=== PATIENT | male | born 1950 | race Caucasian/White ===

== ENCOUNTER 2025-01-27 21:47 | Inpatient (IN) | payer MEDICARE, OTHER, SELFPAY ==
[2025-01-27 14:35] VITALS: BP 158/82
--- NOTE | 2025-01-27 16:06 | EDRN ---
Pt arrives for bilateral arm swelling and has had US. Pt was sent by his oncologist who just called that pt has a high calcium.
[2025-01-27 16:07] VITALS: BMI 28.4
[2025-01-27 16:24] VITALS: BP 146/77
--- NOTE | 2025-01-27 17:26 | ED.GENMED ---
History of Present Illness
General
Chief Complaint: Swelling
Source: patient and family
Exam Limitations: none
Time Seen by Provider: 01/27/25 17:17
Nursing documentation reviewed up to this point in time: agreed with
History of Present Illness
History of Present Illness:
Patient is a 74-year-old male with history of CKD, insulin-dependent diabetes, mesothelioma who presents to the emergency department from recommendation of oncologist given hypercalcemia as well as bilateral arm swelling. States that forearms have
been gradually swelling over the past 2 weeks however seem to worsen over the past few days. He denies any significant pain however does feel like he appreciates some warmth of both arms. He denies any recent injury. He denies any leakage of
fluid or pain with range of motion of wrist. He has had no fevers or chills. No known bug bites or rashes.
Patient's oncologist was concerned for possible DVT however he was unable to have an ultrasound scheduled outpatient therefore was referred to the emergency department.
In addition�patient's oncologist recommended he come to the emergency department due to gradually worsening hypercalcemia seen on outpatient labs. Apparently, this is been a gradual problem for patient however it appears to be continued to worsen
despite fluids and medication he receives Prolia injections for hypercalcemia, his most recent was this past Sunday. He frequently receives IV fluids, as well along with his infusions for mesothelioma. He denies any changes in mental status,
abdominal pain, bone pain.
Past History
Past History
ED Past Medical History: HTN and NIDDM
ED Past Surgical History: Orthopedic (Left shoulder surgery)
Social History
Tobacco: Smoker (Cigar)
Alcohol: None
Personal: Single
Living: with family
Review of Systems
Review of Systems
Allergies reviewed?: Yes
All Other Systems: ROS reviewed and negative except as documented in HPI and ROS
Phy Exam
Physical Exam
Physical Exam:
Vitals: Tachycardic, hypertensive on arrival. Afebrile
General: Patient is well appearing, no acute distress. Nontoxic appearing
Skin: Warm and dry, no rashes or lesions
Head: Normocephalic, atraumatic
Eyes: Sclera nonicteric.
Throat: Protecting airway
Neck: Normal ROM, no cervical spine tenderness, no meningismus
Cardiac: Tachycardic, normal rhythm, no murmurs.
Pulm: Normal respiratory effort, no wheezes, rales, rhonchi heard on exam
Abdomen: Abdomen soft and nontender.
Extremities: 1+ pitting edema of bilateral forearms. Very mild appreciated warmth however no erythema or evidence of cellulitis. Patient is 2+ palpable radial pulses bilaterally. Normal range of motion in bilateral wrists without pain and no
effusion. Capillary refill normal.
Neuro: AAOx3. Grossly intact.
Psychiatric: Normal affect.
Scores
Heart Failure Risk
Heart Failure Risk Score: Not Applicable
Course
Orders/Labs/Results
Orders:
Orders
01/27/25 Breakfast
2000 calorie (17 carb) Diabetic
At Your Request: Limited Participation
Does patient need a safe tray?: No
01/27/25 14:39
Periph Venous Upr Ext Bilat US [US Periph Venous UPPER Ext Dante] Urgent
Comment:
Reason For Exam: swelling
01/27/25 17:19
Complete Blood Count/With Diff Urgent
01/27/25 17:27
0.9% Sodium Chloride 500 ml [Nss] 1,000 ml IV BOLUS
01/27/25 17:36
Comprehensive Metabolic Panel Urgent
Creatine Phosphokinase Urgent
Comment: ADD ON
Magnesium Urgent
Comment: ADD ON
01/27/25 18:33
Add On- LAB Urgent
Comments:: tube in lab
Tests Added?: magnesium
01/27/25 18:46
Add On- LAB Urgent
Tests Added?: magnesium
01/27/25 19:33
Electrocardiogram (*1) Urgent
Reason for Study: QTc Monitoring
EKG- Treatment ONCE
01/27/25 20:30
Add On- LAB Urgent
Tests Added?: ionized calcium, PTH
01/27/25 20:34
Add On- LAB Urgent
Tests Added?: CK
01/27/25 21:19
Admit/Transfer Patient As Directed
Co-Sign Provider:
Level of Care: Inpatient admission
Assign to:: Telemetry
Physician / Group: adair
Diagnosis: hypercalcemia
Reason for Telemetry: Other
Other Reason for Telemetry: electrolyte imbalance
Date to Stop Telemetry: 01/29/25
Time to Stop Telemetry: 11:00
Reason for Hospitalization: hypercalcemia
Expected length of stay greater than two midnights?: Yes
ELOS- Estimated Length of Stay in days: 3
I certify the patient meets the requirements for IP care: Yes
PRN Pain Medication Management As Directed
May give lesser potent ordered pain med per pt: Yes
preference::
Protocol:: Medication orders for pain may be administered in a
manner that supports deferring to patient preference
when the pt is:
- Requesting an ordered lesser potent pain medication.
Least to most potent pain medications are defined
as: acetaminophen < NSAID < tramadol < opioids
(morphine, oxycodone, hydromorphone).
- Requesting a lesser dose of the same medication IF
ORDERED.
- Requesting a less intrusive route of administration
if both routes are prescribed by the provider (PO <
IV).
01/27/25 21:21
Code Status As Directed
Resuscitation Status: Full Code
01/27/25 21:26
Add On- LAB Stat
Tests Added?: PTH related RP
01/27/25 21:28
Vitamin D, 25-OH Routine
01/27/25 21:45
Add On- LAB Routine
Tests Added?: 1,25 Dihydroxyvitamin D
KRISTY w/Free Light Chains, Urine [S] Routine
01/27/25 22:00
Flush (0.9% Sodium Chloride) [Flush (Nss)] See Dose Instructions IV PER PROTOCOL
Pamidronate Disodium [Aredia] 90 mg 0.9% Sodium Chloride 250 ml [Nss] 250 ml IV ONCE
01/27/25 22:36
0.9% Sodium Chloride 1000 ml [Nss] 1,000 ml IV 80 mls/hr
Acetaminophen [Tylenol] 650 mg PO Q4HPRN PRN
Bisacodyl [Dulcolax] 10 mg RECTAL [id number] PRN
Dextrose 50%-Water [Dextrose 50% Syringe] 12.5 grams IV T60GATA PRN
Docusate W/Senna [Senokot-S] 1 tablet PO BIDPRN PRN
Glucagon [GlucaGen] 1 mg IM PRN PRN
Polyethylene Glycol Powder [Miralax] 17 grams PO DAILYPRN PRN
01/27/25 22:36
NEPHROLOGY CONSULT Routine
Consulting Provider: Johnathon Montes
Was physician already notified: Yes
Activity As Directed
Activity Level: As Tolerated
Bedside Glucose Monitoring As Directed
Frequency: AC&HS
Additional Instructions:: Change to q6h if pt on TPN, tube feeding or not eating
Vital Signs As Directed
Frequency: Per unit guidelines
DX Deep Vein Thrombosis Video Routine
01/28/25 06:00
[id number] Enzyme [S] IN AM
Basic Metabolic Panel IN AM
Complete Blood Count/No Diff IN AM
Glycohemoglobin (HgbA1c) IN AM
Magnesium IN AM
PTH Related Peptide LC-MS/MS [S] IN AM
Phosphorus IN AM
Protein Electrophoresis Reflex [S] IN AM
Levothyroxine [Synthroid] 125 mcg PO DAILY@0600
01/28/25 07:30
Insulin Aspart Corrective Low [Novolog Flexpen-Low Resistance] See Protocol SC AC
Insulin Aspart Pen [Novolog Flexpen] 10 units SC AC
01/28/25 08:00
Glimepiride [Amaryl] 2 mg PO DAILY
Heparin 5,000 units SC Q12
Irbesartan [Avapro] 150 mg PO DAILY
Rosuvastatin Calcium [Crestor] 20 mg PO DAILY
Tamsulosin [Flomax] 0.4 mg PO DAILY
01/29/25 06:00
Basic Metabolic Panel IN AM
Complete Blood Count/No Diff IN AM
01/29/25 11:00
DC Protocol for Telemetry ONCE
01/30/25 06:00
Basic Metabolic Panel IN AM
Complete Blood Count/No Diff IN AM
Abnormal Lab Results
01/27/25 01/27/25
17:19 17:36
WBC 3.9 L 10^3/uL
(4.8-10.8)
RBC 3.14 L 10^6/uL
(4.70-6.10)
Hgb 8.6 L g/dL
(13.0-18.0)
Hct 26.6 L %
(39.0-52.0)
MCHC 32.3 L g/dL
(33.0-37.0)
RDW 15.4 H %
(11.5-14.5)
Absolute Lymphs (auto) 0.8 L 10^3/uL
(1.2-3.4)
Monocytes % 12.4 H %
(1.7-9.3)
BUN 28 H mg/dl
(9-20)
Creatinine 3.2 H mg/dL
(0.7-1.3)
Calcium 12.5 H mg/dl
(8.4-10.2)
Magnesium 1.5 L mg/dl
(1.6-2.3)
AST 16 L U/L
(17-59)
Creatine Kinase 46 L U/L
(55-170)
PTH Intact < 3.4 L pg/ml
(13.6-85.8)
01/27/25 17:19
01/27/25 17:36
Vital Signs
Initial and Last Documented VS:
Initial Vital Signs
Temp Pulse Resp BP Pulse Ox
98.6 F 106 20 158/82 96
01/27/25 14:35 01/27/25 14:35 01/27/25 14:35 01/27/25 14:35 01/27/25 14:35
Last Documented Vital Signs
Temp Pulse Resp BP Pulse Ox
98.7 F 105 18 155/82 96
01/27/25 22:40 01/27/25 22:40 01/27/25 22:40 01/27/25 22:40 01/27/25 22:40
MDM/Problems Addressed
Differential Diagnosis Includes:
Not limited to: Medication side effect, CKD, malignancy, DVT, dependent edema, cellulitis, etc.
MDM/Problems Addressed:
74-year-old male presenting with bilateral forearm swelling and elevated calcium levels on outpatient labs. Patient sent by oncologist at [facility] to r/o UE DVT and for management of hypercalcemia. He does have history of hypercalcemia and
frequently receives IV fluids with recent Prolia injection on Sunday.
Vital signs and physical exam as above. There is 1+ pitting edema of bilateral forearms without erythema or limited range of motion of wrists bilaterally. Palpable radial pulses with normal sensation and capillary refill.
An ultrasound of bilateral upper extremities were obtained prior to my evaluation without evidence of DVT.
As far as upper extremity swelling � no evidence of DVT. No evidence of cellulitis. Possible dependent edema or related to frequent IV fluids.
In regards to hypercalcemia � lab work in ED reveals calcium level of 12.6. Based on conversation I had with triage nurse at [facility] � patients oncologist had significant concern about gradually rising calcium levels despite Prolia, IV fluids. It
seems that his levels were normal two weeks ago.
I was able to confirm that patient�s hemoglobin today is around his current baseline. Renal function appears stable.
EKG shows normal QT
Suspect hypercalcemia likely multifactorial, possibly related to malignancy as well as CKD. Recommended admission as per oncology at [facility] for continued management of hypercalcemia, including IV fluids, possible nephrology consult with
consideration for diuretics.
Patient agreeable with plan for admission and accepted to hospitalist service in stable condition.
Chronic conditions affecting care:
CKD, insulin-dependent diabetes, hypertension, mesothelioma
Acute Exacerbation and/or Progression of Chronic Illness:
N/A
*Radiology
Radiology exam reviewed: radiology read reviewed
*Pulse Oximetry
SaO2: 95
Oxygen Mode of Delivery: Room air
Patient hypoxic: no
*EKG
Interpreted by ED Provider?: Yes
EKG Intrepretation Date: 01/27/25
Interpretation: abnormal
Comparison EKG: no changes
Heart Rate: 106
Rate: tachycardiac
Rhythm: sinus
[place]: normal axis
Interval: normal QT interval
QRS Pattern: normal QRS
Ischemia: no ischemia
*Produce Department Manager Interpretation
Rate: Produce Department Manager- N/A
*Critical Care Note
Total Time (30-74mins, 75-104mins- exclusive of procedures): Not Applicable
Patient Management
Discussion with other providers: Hospitalist and Taxi Cab Driver (Case discussed with patient's oncologist)
Escalation/DeEscalation of care consider admission/obs:
Admit for further management of hypercalcemia
ED Attending Note
-
Portions of this chart may have been created with voice recognition software.� Occasional wrong word or��sound alike� substitutions may have occurred due to the inherent limitations of voice recognition software.
Discharge Plan
Departure
Patient Disposition: Admit
Date of Disposition: 01/27/25
Time of Disposition: 20:31
Presentation/result/management discussed w/ accepting MD/DO: Hospitalist
Discharge Problem:
Hypercalcemia, Localized swelling of both forearms, Chronic kidney disease (CKD)
Interventions
Interventions:
*Risk Screen - Suicide Last Done: 01/27/25 22:52
*General Assessment Last Done: 01/27/25 16:07
*Neglect/Abuse Screening Last Done: 01/27/25 16:08
*ED- Fall Risk Assessment Last Done: 01/27/25 16:07
*ED COVID-19 Vaccine History Last Done: 01/27/25 22:52
*Nursing Disposition Last Done: 01/27/25 22:32
ED- Cardiac Assessment Last Done: 01/27/25 16:10
ED- Pulmonary Assessment Last Done: 01/27/25 16:10
ED-Skin Assessment Last Done: 01/27/25 16:10
Discharge Date and Time
Discharge Date/Time: 01/27/25 22:33
[2025-01-27] MEDS: NSS 1000 IV (17:28)
[2025-01-27 17:43] LABS: Hematocrit 26.6 % (39.0-52.0); Hemoglobin 8.6 g/dL (13.0-18.0); Mean Corp Hgb Conc. 32.3 g/dL (33.0-37.0); Mean Corpuscular Volume 84.7 fL (80.0-94.0); Nucleated Red Blood Cells % 0 % (-); Platelet Count 222 10^3/uL (130-400); Red Cell Dist. Width 15.4 % (11.5-14.5)
[2025-01-27 17:45] VITALS: BP 171/96
--- NOTE | 2025-01-27 17:50 | EDRN ---
Radha MCCONNELL in room w/ pt at this time.
--- NOTE | 2025-01-27 17:52 | EDRN ---
No veins noted when looking for access. This RN asked Jayjay RN to assist w/ US IV access and blood draw for lab. Jayjay was able to get US IV access in L AC though only an SST at that time at 1645. IV fluids started. Marilin FAIR atempted blood drawing a
2nd SST and lavender for CBC. CBC sent to lab. First SST was hemolyzed and second SST tube sent to lab.
[2025-01-27 18:00] LABS: ALT (SGPT) 13 U/L (0-50); AST (SGOT) 16 U/L (17-59); Albumin 3.8 g/dl (3.5-5.0); Alkaline Phosphatase 55 U/L (38-126); Blood Urea Nitrogen 28 mg/dl (9-20); Calcium 12.5 mg/dl (8.4-10.2); Carbon Dioxide 27 mmol/L (22-30); Chloride 104 mmol/L (98-107); Estimated Creatinine Clearance 22 ml/min; Glucose 74 mg/dl (70-99); Potassium 4.2 mmol/L (3.5-5.1); Sodium 137 mmol/L (135-145); Total Protein 6.5 g/dl (6.3-8.2); eGFR 19.80
--- NOTE | 2025-01-27 19:06 | EDRN ---
Pt OOB to BR at this time and back to room.
[2025-01-27 19:19] LABS: Magnesium 1.5 mg/dl (1.6-2.3)
--- NOTE | 2025-01-27 20:44 | HPS.HSE ---
Addendum entered and electronically signed by Andrea Eng MD 01/27/25 22:03:
This is an addendum to H&P written by Berenice Lopez on 01/27/2025. �Patient seen and examined independently with FIELD CHECKER.
61-year-old male past medical history of CKD, diabetes, mesothelioma on immunotherapy opdivo/yervoy, hyperlipidemia, hypothyroidism, BPH, presenting upon recommendation of his oncologist secondary to bilateral arm swelling and hypercalcemia.
�Worsening arm swelling for 2 weeks without pain. �No fevers or chills.
He has also been having gradually worsening hypercalcemia. �Has been receiving Prolia for hypercalcemia. �Frequently receives IV fluids.
Vital signs show tachycardia up to 106. �Blood pressure up to 171/96.
Labs show leukopenia of 3.9. �Hemoglobin 8.6. �Creatinine of 3.2. �Calcium of 12.5. �Albumin 3.8. �Magnesium of 1.5.
Peripheral venous ultrasound shows no evidence of DVT of the upper extremities bilaterally.
Patient with hypercalcemia likely secondary to malignancy versus related to Opdivo/Yerboy versus chronic kidney disease. �Hypomagnesemia likely secondary to hypercalcemia which should not be repleted at this time. �IV fluids, check vitamin D, PTH,
PTH RP, pamidronate, nephrology.
Bilateral upper extremity swelling seems to be a result of frequent IV infusions for immunotherapy and IV fluids which she receives every 2 weeks in both extremities. �Recommend outpatient port placement.
Patient with leukopenia and anemia likely from underlying mesothelioma and associated treatments.
Original Note:
Family Physician
-
Family Physician: Sharon Sullivan
Chief Complaint
-
b/l arm edema
hypercalcemia
History of Present Illness
Patient is a 74-year-old male with history of CKD, insulin-dependent diabetes, mesothelioma who presents to the emergency department from recommendation of oncologist given hypercalcemia as well as bilateral arm swelling. States that forearms have
been gradually swelling over the past 2 weeks however seem to worsen over the past few days. patient denied any pain. denied any trauma. his calcium is elevated for past 6 weeks.patient gets immunotherapy every 2 weeks. he is also received fluids
for his calcium with no improvement. denied PRO, dizzy or syncope. denied fever, chills, chest pain, sob.denied abdominal pain,n,v,d. denied dysuria or hematuria.
patient received fluids in ER. admitting for further management.
Medical History
Past Medical History
Past Medical History: Reports Other
Additional Past Medical History:
Chronic kidney disease, hypothyroidism, mesothelioma, type 2 diabetes,
Past Surgical History: Reports Other
Additional Past Surgical History:
Femur and shoulder surgery
Social History
Tobacco: Non-smoker
Alcohol: None
Drug: None
Personal:
Living: With Family
Family History
Family History: Not pertinent
Allergies / Home Medications
Allergies reflects when Allergies were last updated in [facility].
Home Medications with original date entered in [facility]
Allergy/Medication List:
Allergies
Allergy/AdvReac Type Severity Reaction Status Date / Time
bee venom protein (honey bee) Allergy Unknown Verified 01/27/25 14:37
lisinopril Allergy Unknown Verified 01/27/25 14:37
Review of Systems
-
Constitutional: Reports No Symptoms
EENT: Reports No Symptoms
Respiratory: Reports No Symptoms
Cardiac: Reports No Symptoms
Abdomen/GI: Reports No Symptoms
: Reports No Symptoms
Musculoskeletal: Reports Edema and Other (b/l arm)
Skin: Reports No Symptoms
Neurological: Reports No Symptoms
Endocrine: Reports No Symptoms
Hematologic/Lymphatic: Reports No Symptoms
Psych: Reports No Symptoms
Physical Exam
Vital Signs
Vital Signs
Temp Pulse Resp BP Pulse Ox
98.6 F 99 16 171/96 99
01/27/25 14:35 01/27/25 17:45 01/27/25 17:45 01/27/25 17:45 01/27/25 17:45
Physical Exam
General: Well Developed, Well Nourished and No Apparent Distress
HEENT: NormoCephalic, Moist mucous membranes and Atraumatic
Respiratory: Clear
Cardiac: S1/S2 and Regular Rhythm; No Murmur or Rub
GI: Soft, Non Tender, Non Distended and Normal Bowel Sounds; No Organomegaly
Rectal: Deferred by Provider
Musculoskeletal: No Clubbing, No Cyanosis and No Edema
Skin: Rash and Other (bilateral arm, hand)
Neuro: Nonfocal/grossly intact
Laboratory Results
-
01/27/25 17:19
01/27/25 17:36
Laboratory Results
Total Bilirubin 0.3 mg/dl (0.2-1.3) 01/27/25 17:36
AST 16 U/L (17-59) L 01/27/25 17:36
ALT 13 U/L (0-50) 01/27/25 17:36
Alkaline Phosphatase 55 U/L (38-126) 01/27/25 17:36
Data Reviewed
-
Diagnostic Radiology: Report Reviewed by me
Lab Data: Labs Reviewed by me
Impression/Plan
-
#hypercalcemia likely secondary to immunotherapy
-patient in on Opdivo Yervoy
-calcium 12.5, mag 1.5
-ionized calcium and PTH pending, obtain Vitamin D, PTH related RP
-received normal [id number] in ER
-ordered Pamidronate in ER
-normal saline continued
-nephrology consulted.
#B/L forearm edema likely frequent IV infusion line
-US negative for DVT
#hxt of mesothelioma
-wbc 3.9, hgb 8.6
-on immunotherapy every two weeks, last one was on the 01/19
#CKD stage 3b
-cr 3.2, ctm
#type 2 Dm
-sliding scale
-NovoLog 10u with meals
-glimepiride continued
-CHO diet
#HLD
-statin continued
#hypothyroidism
-Synthroid continued
#BPH
-Flomax continued
#DVT Prophylaxis
-heparin sq
#CODE status
-full code
[2025-01-27] MEDS: AREDIA 280 MG IV (22:07)
[2025-01-27 22:11] LABS: Vitamin D, 25-OH*** 41.9 ng/mL (30-80)
[2025-01-27 22:40] VITALS: BP 155/82
[2025-01-27 22:49] LABS: Glucose - Point of Care 124 mg/dl (70-99)
[2025-01-28] MEDS: NSS 1000 IV ×2 (00:32→12:02)
[2025-01-28 03:54] VITALS: BP 141/77
[2025-01-28] MEDS: SYNTHROID 125 MCG PO (06:12)
[2025-01-28 07:00] VITALS: BP 155/79
[2025-01-28 07:05] LABS: Glucose - Point of Care 76 mg/dl (70-99)
[2025-01-28 07:14] LABS: Hematocrit 26.3 % (39.0-52.0); Hemoglobin 8.2 g/dL (13.0-18.0); Mean Corp Hgb Conc. 31.2 g/dL (33.0-37.0); Mean Corpuscular Volume 87.7 fL (80.0-94.0); Platelet Count 230 10^3/uL (130-400); Red Cell Dist. Width 15.2 % (11.5-14.5)
[2025-01-28 07:17] LABS: Blood Urea Nitrogen 29 mg/dl (9-20); Calcium 11.5 mg/dl (8.4-10.2); Carbon Dioxide 26 mmol/L (22-30); Chloride 107 mmol/L (98-107); Estimated Creatinine Clearance 23 ml/min; Glucose 73 mg/dl (70-99); Magnesium 1.4 mg/dl (1.6-2.3); Potassium 4.6 mmol/L (3.5-5.1); Sodium 139 mmol/L (135-145); eGFR 21.40
[2025-01-28 07:55] LABS: Glucose - Point of Care 99 mg/dl (70-99)
[2025-01-28] MEDS: AMARYL 2 MG PO (08:54)
[2025-01-28] MEDS: FLOMAX 0.4 MG PO (08:54)
[2025-01-28] MEDS: HEPARIN 5000 UNITS SC ×2 (08:55→21:02)
[2025-01-28] MEDS: CRESTOR 20 MG PO (08:55)
[2025-01-28] MEDS: AVAPRO 150 MG PO (08:56)
[2025-01-28 10:12] LABS: Glycohemoglobin (HgbA1c) 7.0 % (4.0-5.6)
--- NOTE | 2025-01-28 10:33 | W.PN.HOSP.TC ---
Today's Communication/Plan
-
see outlined plan below
Assessment / Plan
Assessment / Plan
Assessment:
Acute hypercalcemia
- intact PTH low at <3.4
- vit D 41.9
- s/p IVF
- s/p Pamidronate
- Ca improved from 12.5 to 11.5
- follow nephrology recs and further workup sent
Hypomagnesemia
- will defer daily replacement at 1.5, may worsen hypercalcemia.
B/L forearm edema likely frequent IV infusion line
- US negative for DVT
- would be appropriate for outpatient PORT
- compression therapy added
hx of mesothelioma
Leukopenia and anemia suspected related to malignancy and/or treatment
- check anemia workup
- no evidence of bleeding
- follows with [facility]
CKD stage 4
- monitor Cr
- Stable around baseline of 3.0 to 3.2
- Nephrology following
Type 2 DM
- diabetic diet
- continue SSI
- continue NovoLog with meals
- glimepiride continues
HLD
- statin continued
hypothyroidism
- Synthroid continued
BPH
- Flomax continued
Essential HTN
- continue ARB
DVT Prophylaxis: SC heparin
Code: Full
Anticipated Discharge: 24 - 48 hours
Subjective/Interval History
-
Date of Service: January 28, 2025
resting comfortably
arms remain swollen
Objective Data
-
Labs:
Laboratory Results
01/28/25
06:23
WBC 4.0 L
Hgb 8.2 L
Hct 26.3 L
Plt Count 230
Sodium 139
Potassium 4.6
Chloride 107
Carbon Dioxide 26
BUN 29 H
Creatinine 3.0 H
Glucose 73
Calcium 11.5 H
Vital Signs:
Vital Signs
Temp Pulse Resp BP Pulse Ox
98.3 F 97 12 148/73 95
01/28/25 07:00 01/28/25 08:56 01/28/25 07:00 01/28/25 08:56 01/28/25 07:00
Physical Exam
-
General: No Apparent Distress
HEENT: Normocephalic and Atraumatic
Respiratory: Negative Wheezes
Cardiac: Regular Rhythm and S1/S2
GI: Soft and Nontender
Musculoskeletal: Edema, Right Upper Extrem and Edema, Left Upper Extrem
Neuro: AO x 3
Psych: Calm
Data Reviewed
-
Total Time Spent with Patient (in minutes): 42
Labs: Labs Reviewed by me
[2025-01-28 11:00] VITALS: BP 149/84
[2025-01-28 11:39] LABS: Glucose - Point of Care 101 mg/dl (70-99)
[2025-01-28 11:51] LABS: Iron 51 ug/dl (49-181)
[2025-01-28 12:02] LABS: Total Iron Binding Capacity 250 ug/dl (261-462)
[2025-01-28 12:27] LABS: Ferritin 97.4 ng/ml (17.9-464.0)
--- NOTE | 2025-01-28 12:40 | CM ---
Alert awake oriented patient who lives alone in a 2 story home with 4 steps to enter and 12 steps to bed/bathroom. He is independent in driving and all ADLs. Offered Vn he declined need.
[facility]/VN
[facility]
PCP
[facility] no needs
[2025-01-28 12:59] LABS: Folate 11.0 ng/ml (2.76-20); Vitamin B12 669 pg/ml (239-931)
[2025-01-28 15:00] VITALS: BP 158/80
--- NOTE | 2025-01-28 15:29 | W.CON.NEPH ---
Consultation
-
Date/Time Consultation Requested: 01/27/25 2236
Date/Time Consultation Performed: 01/28/25 1600
Requesting Provider: Andrea Lorenzo
Performing Provider: Pat Li
Reason for Consultation: CKD, hyperclacemia
Medical History
-
Chief Complaint: b/l arm edema and hypercalcemia
History of Present Illness:
74-year-old male with history of CKD4, insulin-dependent diabetes on glimepiride, mesothelioma diagnosed in spring 2024 on immunotherapy Opdivo/Yervoy since September at [facility], HLD on statin, BPH On flomax, hypothyroidism on levothyroxine, HTN on
Irbesartan who presents to the emergency department from recommendation of oncologist given hypercalcemia as well as bilateral arm swelling. States that forearms have been gradually swelling over the past 2 weeks however seem to worsen over the
past few days. Pt reprots he was at [facility] recently for PNA and had multiple IVs placements as he seem to infiltrate easily. his calcium is elevated for past 6 weeks and had no improvement despite IVF and IV medication?prolia. .patient
gets immunotherapy every 2 weeks. No PRO, dizzy. denied fever, chills, chest pain, sob.denied abdominal pain,n,v,d. denied dysuria but has nocturia chronically. He drinks less amount of fluids per family. He has chr cough from possibly mesothelioma
which is most bothering symptoms he has. He also takes advil 3-4times in week for pain control.
He follows nephrology at [facility]-however not seen them for a while. cr no change at 3 since 2022. This time uriel was at 12.5 improving to 11.5 today with IVF and pamidronate.
Past Medical History
Chronic kidney disease, hypothyroidism, mesothelioma, type 2 diabetes,
Past Surgical History: Other (Femur and shoulder surgery)
Social History
Tobacco: Non-Smoker
Alcohol: None
Drug: None
Personal:
Living: With Family
Family History
Family History: Not Pertinent
Allergies / Home Medications
Allergy/AdvReac Type Severity Reaction Status Date / Time
bee venom protein (honey bee) Allergy Unknown Verified 01/27/25 14:37
lisinopril Allergy Unknown Verified 01/27/25 14:37
�Medication �Instructions �Recorded �Confirmed �Type
glimepiride 2 mg tablet 2 mg PO DAILY Diabetes 01/27/25 01/27/25 History
insulin aspart U-100 100 unit/mL 10 unit SC TID Diabetes 01/27/25 01/27/25 History
(3 mL) subcutaneous pen (Novolog
FlexPen U-100 Insulin aspart)
ipilimumab 50 mg/10 mL (5 mg/mL) 50 mg IV Q2W Antineoplastic Agent 01/27/25 01/27/25 History
intravenous solution (Yervoy)
irbesartan 150 mg tablet 150 mg PO DAILY Blood Pressure 01/27/25 01/27/25 History
levothyroxine 125 mcg tablet 125 mcg PO DAILY Thyroid 01/27/25 01/27/25 History
nivolumab 40 mg/4 mL intravenous mg IV Antineoplastic Agent 01/27/25 History
solution (Opdivo)
rosuvastatin 20 mg tablet 20 mg PO DAILY High Cholesterol 01/27/25 01/27/25 History
tamsulosin 0.4 mg capsule (Flomax) 0.4 mg PO DAILY Urinary Issue 01/27/25 01/27/25 History
Review of Systems
-
All other systems: Negative unless noted
Physical Exam
Vital Signs
Vital Signs
Temp Pulse Resp BP Pulse Ox
98.4 F 100 12 149/84 97
01/28/25 11:00 01/28/25 11:00 01/28/25 11:00 01/28/25 11:00 01/28/25 11:00
Lab Results
WBC 4.0 10^3/uL (4.8-10.8) L 01/28/25 06:23
RBC 3.00 10^6/uL (4.70-6.10) L 01/28/25 06:23
Hgb 8.2 g/dL (13.0-18.0) L 01/28/25 06:23
Hct 26.3 % (39.0-52.0) L 01/28/25 06:23
Plt Count 230 10^3/uL (130-400) 01/28/25 06:23
Sodium 139 mmol/L (135-145) 01/28/25 06:23
Potassium 4.6 mmol/L (3.5-5.1) 01/28/25 06:23
Chloride 107 mmol/L (98-107) 01/28/25 06:23
Carbon Dioxide 26 mmol/L (22-30) 01/28/25 06:23
BUN 29 mg/dl (9-20) H 01/28/25 06:23
Creatinine 3.0 mg/dL (0.7-1.3) H 01/28/25 06:23
eGFR 21.40 01/28/25 06:23
Glucose 73 mg/dl (70-99) 01/28/25 06:23
Calcium 11.5 mg/dl (8.4-10.2) H 01/28/25 06:23
Phosphorus 4.1 mg/dl (2.5-4.5) 01/28/25 06:23
Albumin 3.8 g/dl (3.5-5.0) 01/27/25 17:36
Physical Exam
General: Awake, Alert, Oriented, AOx3, No Distress and Nontoxic
HEENT: Anicteric, Conjunctivae Clear, Facial Symmetry and Neck Supple
Respiratory: Crackels (right base), Normal Excursion and Nonlabored Respirations
Cardiac: S1/S2, Regular Rate/Rhythm and Murmur (1/6 aortic area)
Breast: Deferred by me
Abdomen: Soft, Nontender and Nondistended
Musculoskeletal: No Cyanosis and Edema (bilat UE 1+edema)
Skin: No Rash
Neuro: Nonfocal/Grossly Intact
Psych: Mood/afflect pleasant, Insight/judgement good and Appropriate
Data Reviewed
-
Labs: Labs Reviewed by me, Discussed with Patient and Discussed with Family
Assessment/Plan
-
IMP:
hypercalcemia unclear if secondary to immunotherapy-patient in on Opdivo Yervoy
Hypomagnesemia
B/L forearm edema
hxt of mesothelioma-on immunotherapy every two weeks, last one was on the 01/19
CKD stage 4-cr 3.2
type 2 Dm
HLD
hypothyroidism
BPH
Plan:
A/w abnormal labs
hypercalcemia-unclear if it is from immunotherapy
paraprotein, ROSI level and PTHrP pending
PTH appropriately suppressed, normal vit D
s/p Pamidornate on 01/27, uriel improving
cont NS for now
cr seem at baseline
Bp stable on ARB
replace mg
He would like to follow with us in the office after d/c
[2025-01-28] MEDS: MAGNESIUM SULFATE 50 IV (16:00)
[2025-01-28 16:48] LABS: Glucose - Point of Care 83 mg/dl (70-99)
[2025-01-28 19:55] VITALS: BP 168/89
[2025-01-28] MEDS: TYLENOL 650 MG PO (21:06)
[2025-01-28 21:54] LABS: Glucose - Point of Care 86 mg/dl (70-99)
[2025-01-28 23:26] VITALS: BP 126/69
[2025-01-29] MEDS: NSS 1000 IV (02:25)
[2025-01-29 03:45] VITALS: BP 149/76
[2025-01-29] MEDS: SYNTHROID 125 MCG PO (05:35)
[2025-01-29 07:00] VITALS: BP 142/81
[2025-01-29 07:05] LABS: Glucose - Point of Care 70 mg/dl (70-99)
[2025-01-29] MEDS: HEPARIN 5000 UNITS SC (08:10)
[2025-01-29] MEDS: FLOMAX 0.4 MG PO (08:11)
[2025-01-29] MEDS: CRESTOR 20 MG PO (08:11)
[2025-01-29] MEDS: AMARYL 2 MG PO (08:11)
[2025-01-29] MEDS: AVAPRO 150 MG PO (08:11)
[2025-01-29 08:19] LABS: Hematocrit 25.1 % (39.0-52.0); Hemoglobin 7.9 g/dL (13.0-18.0); Mean Corp Hgb Conc. 31.5 g/dL (33.0-37.0); Mean Corpuscular Volume 86.9 fL (80.0-94.0); Platelet Count 214 10^3/uL (130-400); Red Cell Dist. Width 15.2 % (11.5-14.5)
[2025-01-29 08:19] LABS: Glucose - Point of Care 94 mg/dl (70-99)
[2025-01-29 09:23] LABS: Blood Urea Nitrogen 25 mg/dl (9-20); Calcium 10.6 mg/dl (8.4-10.2); Carbon Dioxide 23 mmol/L (22-30); Chloride 106 mmol/L (98-107); Estimated Creatinine Clearance 25 ml/min; Glucose 52 mg/dl (70-99); Potassium 4.3 mmol/L (3.5-5.1); Sodium 138 mmol/L (135-145); eGFR 23.24
[2025-01-29 09:29] LABS: Glucose - Point of Care 122 mg/dl (70-99)
--- NOTE | 2025-01-29 09:35 | W.PN.HOSP.TC ---
Today's Communication/Plan
-
dc home
Assessment / Plan
Assessment / Plan
Assessment:
Acute hypercalcemia
- intact PTH low at <3.4
- vit D 41.9
- s/p IVF
- s/p Pamidronate
- Ca improved from 12.5 to 11.5 to 10.6
- stop IVF
- 1 dose IV Lasix
- OP repeat BMP Sunday
Hypomagnesemia
- repleted
B/L forearm edema likely frequent IV infusion line
- US negative for DVT
- would be appropriate for outpatient PORT
- compression therapy added
- 1 dose IV Lasix
hx of mesothelioma
Leukopenia and anemia suspected related to malignancy and/or treatment
- no evidence of bleeding
- follows with [facility]
CKD stage 4
- monitor Cr
- Stable around baseline of 3.0 to 3.2; currently 2.8
- Nephrology following
Type 2 DM
- diabetic diet
- continue SSI
- continue NovoLog with meals; reduce to 7 units with each meal from 10
- stop glimepiride
HLD
- statin continued
hypothyroidism
- Synthroid continued
BPH
- Flomax continued
Essential HTN
- continue ARB
DVT Prophylaxis: SC heparin
Code: Full
More than 30 minutes spent in discharge including
Final examination of the patient
Summarizing hospital stay
Instructions for continuing care to all relevant caregivers
Preparation of discharge records, prescriptions, and referral forms
Total time spent (in minutes): 41
Anticipated Discharge: Today
Subjective/Interval History
-
Date of Service: January 29, 2025
reports worsening arm swelling in setting of IVF
Objective Data
-
Labs:
Laboratory Results
01/29/25
06:36
WBC 3.3 L
Hgb 7.9 L
Hct 25.1 L
Plt Count 214
Sodium 138
Potassium 4.3
Chloride 106
Carbon Dioxide 23
BUN 25 H
Creatinine 2.8 H
Glucose 52 L*
Calcium 10.6 H
Vital Signs:
Vital Signs
Temp Pulse Resp BP Pulse Ox
98.5 F 91 12 142/81 96
01/29/25 07:00 01/29/25 08:11 01/29/25 07:00 01/29/25 08:11 01/29/25 07:00
I&O
01/28/25 01/29/25 01/30/25
06:59 06:59 06:59
Intake Total 2508 / 2508
Output Total 1725 / 1725
Balance 783 / 783
Physical Exam
-
General: No Apparent Distress
HEENT: Normocephalic and Atraumatic
Respiratory: Negative Wheezes
Cardiac: Regular Rhythm and S1/S2
GI: Soft
Genito-urinary: No Costovertebral Tender
Neuro: AO x 3
Psych: Calm
Data Reviewed
-
Total Time Spent with Patient (in minutes): 42
Labs: Labs Reviewed by me
--- NOTE | 2025-01-29 09:45 | W.DS.TRANS ---
DC Summary - [employer]
-
Discharge Instructions:
Discharge Diagnosis/Procedures hypercalcemia
Diet Diabetic, Carb Controlled
Activity As tolerated
Blood Work repeat BMP Sunday for repeat calcium check
Instructions:
Stand-Alone Forms:
Changes to Home Medications: Yes
Discharge Medications:
DC Medications w/original date entered in [facility]
ipilimumab 50 mg/10 mL (5 mg/mL) intravenous solution (Yervoy) 50 mg IV Q2W Antineoplastic Agent 01/27/25
irbesartan 150 mg tablet 150 mg PO DAILY Blood Pressure 01/27/25
levothyroxine 125 mcg tablet 125 mcg PO DAILY Thyroid 01/27/25
nivolumab 40 mg/4 mL intravenous solution (Opdivo) mg IV Antineoplastic Agent 01/27/25
rosuvastatin 20 mg tablet 20 mg PO DAILY High Cholesterol 01/27/25
tamsulosin 0.4 mg capsule (Flomax) 0.4 mg PO DAILY Urinary Issue 01/27/25
insulin aspart U-100 100 unit/mL (3 mL) subcutaneous pen (Novolog FlexPen U-100 Insulin aspart) 7 unit (0.07 mL) SC TID Diabetes #0 mL 01/29/25
Home Medication Changes
Lantus reduced to 7 units
Glimepiride stopped
Pending Results: No
Total time spent discharging patient (in min): 42
--- NOTE | 2025-01-29 09:48 | W.PN.NEPH.PH ---
Today's Communication / Plan
-
ok for d/c
Assessment/Plan
-
IMP:
hypercalcemia unclear if secondary to immunotherapy-patient in on Opdivo Yervoy
Hypomagnesemia
B/L forearm edema
hxt of mesothelioma-on immunotherapy every two weeks, last one was on the 01/19
CKD stage 4-cr 3.2
type 2 Dm
HLD
hypothyroidism
BPH
Plan:
A/w abnormal labs
hypercalcemia-unclear if it is from immunotherapy
paraprotein, ROSI level and PTHrP pending
PTH appropriately suppressed, normal vit D
s/p Pamidornate on 01/27, uriel improving 10.6
ok for lasix for UE edema which seem to be from IVs from previous admit
cr seem at baseline
Bp stable on ARB
ok to d/c
He would like to follow with us in the office after d/c
-
-
Date of Service: January 29, 2025
CC / HPI / ROS
-
Chief Complaint:
CKD, hypercalcemia
History of Present Illness:
cr down to 2.8, uriel 10.6
Bps table
hb low 7.9
Review of Systems:
no cp or sob
edmea still in arms
Labs
-
Labs:
WBC 3.3 10^3/uL (4.8-10.8) L 01/29/25 06:36
RBC 2.89 10^6/uL (4.70-6.10) L 01/29/25 06:36
Hgb 7.9 g/dL (13.0-18.0) L 01/29/25 06:36
Hct 25.1 % (39.0-52.0) L 01/29/25 06:36
Plt Count 214 10^3/uL (130-400) 01/29/25 06:36
Sodium 138 mmol/L (135-145) 01/29/25 06:36
Potassium 4.3 mmol/L (3.5-5.1) 01/29/25 06:36
Chloride 106 mmol/L (98-107) 01/29/25 06:36
Carbon Dioxide 23 mmol/L (22-30) 01/29/25 06:36
BUN 25 mg/dl (9-20) H 01/29/25 06:36
Creatinine 2.8 mg/dL (0.7-1.3) H 01/29/25 06:36
eGFR 23.24 01/29/25 06:36
Glucose 52 mg/dl (70-99) L* 01/29/25 06:36
Calcium 10.6 mg/dl (8.4-10.2) H 01/29/25 06:36
Phosphorus 4.1 mg/dl (2.5-4.5) 01/28/25 06:23
Albumin 3.8 g/dl (3.5-5.0) 01/27/25 17:36
Physical Exam
-
Vital Signs:
Vital Signs
Temp Pulse Resp BP Pulse Ox
98.5 F 96 12 143/82 96
01/29/25 07:00 01/29/25 09:51 01/29/25 07:00 01/29/25 09:51 01/29/25 08:00
Cardiovascular:: Regular rate and rhythm
Respiratory:: Bilateral: CTA
Lung Excursion:: Normal
Abdomen:: Nontender and Soft
Messer Catheter: No
Other Findings::
bilat UE edema
[2025-01-29] MEDS: LASIX 20 MG IV (09:51)
--- NOTE | 2025-01-29 11:24 | CM ---
MD entered order for discharge.
Pt agrees with DC and IMM.
Alline will drive him home.
Declined VN need.
PLAN Home no needs
== END 2025-01-29 10:44 | disposition home or self-care (01) | DRG 641 ==
LOC: 4 EAST ACU 21:47
PROVIDERS: Registered Nurse; Specialist; ADMITTING PHYSICIAN Hospitalist; ATTENDING PHYSICIAN Internal Medicine; EMERGENCY PHYSICIAN Student in an Organized Health Care Education/Training Program; FAMILY PHYSICIAN Internal Medicine; OTHER PHYSICIAN Internal Medicine
DX: E83.52 Hypercalcemia (principal); N18.4 Chronic kidney disease, stage 4 (severe); E11.22 Type 2 diabetes mellitus with diabetic chronic kidney disease; C45.9 Mesothelioma, unspecified; E11.65 Type 2 diabetes mellitus with hyperglycemia; I12.9 Hypertensive chronic kidney disease with stage 1 through stage 4 chronic kidney disease, or unspecified chronic kidney disease; F17.200 Nicotine dependence, unspecified, uncomplicated; E03.9 Hypothyroidism, unspecified; N40.1 Benign prostatic hyperplasia with lower urinary tract symptoms; R35.1 Nocturia; D72.819 Decreased white blood cell count, unspecified; R60.0 Localized edema; D64.81 Anemia due to antineoplastic chemotherapy; E83.42 Hypomagnesemia; D63.0 Anemia in neoplastic disease; T45.1X5A Adverse effect of antineoplastic and immunosuppressive drugs, initial encounter; Y92.9 Unspecified place or not applicable; Z88.8 Allergy status to other drugs, medicaments and biological substances; Z91.030 Bee allergy status; Z79.84 Long term (current) use of oral hypoglycemic drugs; Z79.890 Hormone replacement therapy; Z79.4 Long term (current) use of insulin; Z87.01 Personal history of pneumonia (recurrent)
CPT/HCPCS: 80048; 80053; 81050; 82164; 82306; 82550; 82607; 82728; 82746; 82962; 83036; 83519; 83520; 83540; 83550; 83735; 83970; 84100; 84155; 84156; 84165; 85025; 85027; 86335; 93005; 93970; 96361; 96374; 99285; 99406; J2430

== ENCOUNTER → 2025-02-02 13:52 | Outpatient (REF) | payer MEDICARE, OTHER, SELFPAY ==
[2025-02-02 15:20] LABS: Blood Urea Nitrogen 32 mg/dl (9-20); Calcium 12.4 mg/dl (8.4-10.2); Carbon Dioxide 26 mmol/L (22-30); Chloride 101 mmol/L (98-107); Glucose 179 mg/dl (70-99); Potassium 4.3 mmol/L (3.5-5.1); Sodium 137 mmol/L (135-145); eGFR 21.40
== END ==
LOC: REG 13:52
PROVIDERS: ATTENDING PHYSICIAN Internal Medicine; FAMILY PHYSICIAN Internal Medicine
DX: M79.89 Other specified soft tissue disorders (principal)
CPT/HCPCS: 36415; 80048